=== PATIENT | female | born 1960 | race Caucasian/White ===

== ENCOUNTER 2018-07-15 14:07 | Inpatient (IN) ==
--- NOTE | 2018-07-15 14:49 | PROVIDER DOCUMENTATION ---
HPI-Rash/Wound/ReCheck - General Chief Complaint: Extremity Pain Stated Complaint: L-LEG RED/PURPLE X 3 DAYS Time Seen by Provider: 07/15/18 14:09 Allergies/Adverse Reactions: Allergies Allergy/AdvReac Type Severity Reaction Status Date / Time paroxetine HCl * [From Paxil] Allergy Unknown Verified 05/12/15 11:15 Home Medications: Home Medication List Medication Instructions Recorded Confirmed Last Taken Type Hydrocodone/Acetaminophen [Mentor 1 each PO Q4H PRN PRN 09/14/13 05/12/15 05/12/15 History 10-325 Tablet] Ropinirole [Requip] 1 mg PO BID 09/14/13 05/12/15 05/12/15 History Tizanidine HCl [Zanaflex] 2 mg PO QHS 09/14/13 05/12/15 05/12/15 History Amoxicillin [Amoxil] 875 mg PO BID #20 tablet 05/12/15 Unknown Rx Cyclobenzaprine [Flexeril] 10 mg PO TID #20 tablet 05/12/15 Unknown Rx Ondansetron Odt [Zofran 4 mg Odt] 4 mg PO Q6H PRN PRN #14 tablet 05/12/15 Unknown Rx - History of Present Illness-Dermatology Nature of Presenting Problem: reports that her chronic left foot ulcer has been worsening, severe sharp painful to touch or bear weight. this recurrent started on monday. associated with draining and fevr chills, sob. denied cp. history of several dvt left worsen than right and multiple vascular surgeries and plastic surgery, wound care done at [facility]. also has history of PE b/l lung and on chronic anticoagulant eliquis. Review of Systems - Adult - REVIEW OF SYSTEMS - ADULT Constitutional: reports: no symptoms reported Eyes: reports: no symptoms reported Ears, Nose, Mouth & Throat: reports: no symptoms reported Cardiovascular: reports: no symptoms reported Respiratory: reports: no symptoms reported Gastrointestinal: reports: no symptoms reported Genitourinary: reports: no symptoms reported Musculoskeletal: reports: no symptoms reported Integumentary: reports: no symptoms reported Neurological: reports: no symptoms reported Psychiatric: reports: no symptoms reported Endocrine: reports: no symptoms reported Hematologic/Lymphatic: reports: no symptoms reported Allergic/Immunologic: reports: no symptoms reported All Other Systems: Reviewed and Negative Past History - Adult - PAST MEDICAL HISTORY-ADULT Review of Records: reports: Old Records Reviewed, Nursing Assessment Review, Medications Reviewed, Social history reviewed & non-contributory. Major Childhood Illnesses: reports: denies history Cardiovascular: reports: denies history, blood clots Respiratory: reports: denies history Gastrointestinal: reports: denies history Obstetrical/Gynecological: reports: denies history Genitourinary: reports: denies history Musculoskeletal: reports: denies history Neurological: reports: denies history, other (restless legs) Psychiatric: reports: anxiety Endocrine/Immune: reports: denies history Other Conditions: reports: denies history - PRIOR SURGERIES/PROCEDURES Surgical/Procedure History: reports: orthopedic (extremity) - IMMUNIZATION STATUS Childhood Immunizations: See Nurse Assessment Flu Vaccine: See Nurse Assessment - FAMILY HISTORY Family History: reviewed, not pertinent - SOCIAL HISTORY Smoking: denies Provider spent 3-5 mins advising pt. on dangers of tobacco.: Discussed manners to quit use, and f/u contacts for add'l counseling. Substance Use: none/never Physical Exam-General - PHYSICAL EXAM-ADULT Initial Vital Signs Reviewed: Yes - CONSTITUTIONAL General Appearance: appears well, alert, mild distress - EYES Eyes: PERRL/EOMI, pink conjunctivae - HEAD, EARS, NOSE, MOUTH & THROAT HENMT: normocephalic/atraumatic, moist mucous membranes, normal ENT inspection - NECK Neck: non-tender, full range of motion - RESPIRATORY Respiratory: chest non-tender, lungs clear, normal breath sounds, no pleuratic chest pain, no respiratory distress - CARDIOVASCULAR Cardiovascular: normal peripheral pulses, tachycardia - GASTROINTESTINAL (ABDOMEN) Abdominal Exam: normal bowel sounds, non tender, soft - MUSCULOSKELETAL Back Exam: normal inspection, no CVA tenderness, no vertebral tenderness Extremity: normal range of motion, erythema, inflammation, swelling, tenderness (left foot, NVI, left medial ankle with large opened ulcer, mild drainage.) - NEUROLOGIC Neurologic: grossly normal, no motor/sensory deficits - PSYCHIATRIC Psych/Mental Status: normal thought content, normal thought process, oriented x 3 Progress - PLAN OF CARE/RESULTS Progress/Plan/Lab Results: Laboratory Results - last 24 hr 07/15/18 07/15/18 07/15/18 15:12 15:12 15:12 WBC 9.24 RBC 4.98 Hgb 11.7 L Hct 37.8 MCV 75.9 L MCH 23.5 L MCHC 31.0 L RDW Std Deviation 24.5 H Plt Count 267 MPV 9.1 Immature Gran % (Auto) 0.2 Neut % (Auto) 80.1 H Lymph % (Auto) 10.2 L Mckean % (Auto) 9.0 Eos % (Auto) 0.4 Baso % (Auto) 0.1 Immature Gran # (Auto) 0.02 Neut # (Auto) 7.40 H Lymph # (Auto) 0.94 L Mckean # (Auto) 0.83 H Eos # (Auto) 0.04 Baso # (Auto) 0.01 ESR 45 H PT 16.5 H INR 1.23 PTT (Actin FS) 43.6 H Sodium 139 Potassium 4.9 Chloride 106 Carbon Dioxide 18 L Anion Gap Not Reportable BUN 15 Creatinine 1.0 H Estimated GFR/1.73 m2 57 BUN/Creatinine Ratio 15 Glucose 106 H Calculated Osmolality Not Reportable Calcium 9.4 Total Bilirubin 0.35 AST 47 H ALT 29 Alkaline Phosphatase 89 Troponin T C-Reactive Prot, Quant 191.67 H Total Protein 7.8 Albumin 4.1 Globulin 3.7 Albumin/Globulin Ratio 1.1 Plasma Lactate TSH 07/15/18 07/15/18 07/15/18 15:12 15:12 15:12 WBC RBC Hgb Hct MCV MCH MCHC RDW Std Deviation Plt Count MPV Immature Gran % (Auto) Neut % (Auto) Lymph % (Auto) Mckean % (Auto) Eos % (Auto) Baso % (Auto) Immature Gran # (Auto) Neut # (Auto) Lymph # (Auto) Mckean # (Auto) Eos # (Auto) Baso # (Auto) ESR PT INR PTT (Actin FS) Sodium Potassium Chloride Carbon Dioxide Anion Gap BUN Creatinine Estimated GFR/1.73 m2 BUN/Creatinine Ratio Glucose Calculated Osmolality Calcium Total Bilirubin AST ALT Alkaline Phosphatase Troponin T < 0.010 C-Reactive Prot, Quant Total Protein Albumin Globulin Albumin/Globulin Ratio Plasma Lactate 3.2 H TSH 1.50 Orders Category Date Time Status Admit - [facility] Routine AdmDCTranf 07/15/18 18:16 Active Activity - Up with Assistance ORDERED Care 07/15/18 18:16 Active Cardiac Monitoring DIRECTED Care 07/15/18 14:47 Active Intake and Output-Strict ORDERED Care 07/15/18 18:16 Active Nursing- MD Consult Request ROUTINE Care 07/15/18 18:21 Active Nursing- MD Consult Request ROUTINE Care 07/16/18 07:00 Active Nursing- Obtain EKG ONCE Care 07/15/18 14:47 Active Oxygen Therapy- ED Nursing DIRECTED Care 07/15/18 14:47 Active Saline Loc NOW Care 07/15/18 14:47 Active Vital Signs Order Q 4-HR ASSESS Care 07/15/18 18:17 Active Z-Document. for Tele Applied ORDERED Care 07/15/18 18:17 Completed MD [Physician/Provider Consults] Routine Cons 07/15/18 18:20 Ordered MD [Physician/Provider Consults] Routine Cons 07/16/18 07:00 Ordered Heart Healthy Diet Diet 07/15/18 18:17 Active CHEST-2 VIEWS [RAD] Stat Exams 07/15/18 14:47 Completed LOWER LEG-LEFT [RAD] Stat Exams 07/15/18 14:45 Completed BLOOD CULTURE [BLDCUL] Stat Lab 07/15/18 15:00 Results C REACTIVE PROT QUANT [CHEM] Stat Lab 07/15/18 15:12 Completed CBC WITH DIFF [HEME] Routine Lab 07/16/18 07:35 Completed CBC WITH ELECTRONIC DIFF [HEME] Stat Lab 07/15/18 15:12 Completed COMPREHENSIVE METABOLIC PANEL [CHEM] Routine Lab 07/16/18 07:35 Completed COMPREHENSIVE METABOLIC PANEL [CHEM] Stat Lab 07/15/18 15:12 Completed LACTATE, PLASMA [CHEM] Stat Lab 07/15/18 15:12 Completed PROTIME WITH INR [COAG] Stat Lab 07/15/18 15:12 Completed PTT [COAG] Stat Lab 07/15/18 15:12 Completed SED RATE [HEME] Stat Lab 07/15/18 15:12 Completed TROPONIN T Stat Lab 07/15/18 15:12 Completed TSH Stat Lab 07/15/18 15:12 Completed VITAMIN D 25 HYDROXY Routine Lab 07/16/18 07:35 Completed WOUND CULTURE INC GRAM STAIN [RM] Routine Lab 07/15/18 22:50 Results 0.9% Sodium Chloride Inj [Ns] 1,000 ml Med 07/15/18 18:30 Active IV 75 mls/hr 0.9% Sodium Chloride Inj [Ns] 1,000 ml Med 07/15/18 16:32 Discontinued IV 999 mls/hr Acetaminophen [Tylenol] Med 07/15/18 18:16 Active 650 mg PO Q6H PRN PRN Apixaban [Eliquis] Med 07/15/18 21:00 Active 5 mg PO BID CefEPIME [Maxipime] 1 gm Med 07/15/18 18:30 Discontinued 0.9% Sodium Chloride Inj [Ns] 50 ml IV Q12H CefTRIAXONE [Rocephin] 1 gm Med 07/15/18 17:28 Discontinued 0.9% Sodium Chloride Inj [Ns] 50 ml IV NOW Hydromorphone [Dilaudid] Med 07/15/18 18:19 Active 1 mg IV Q3H PRN PRN Morphine Med 07/15/18 16:39 Discontinued 4 mg IV NOW ONE Ondansetron [Zofran] Med 07/15/18 18:16 Active 4 mg IV Q4H PRN PRN Pharmacy Order [Vancomycin IV Per Pharmacy] Med 07/15/18 18:30 Active 1 each MISC DIRECTED Tramadol [Ultram] Med 07/15/18 18:20 Active 50 mg PO Q6H PRN PRN CP/SOB/Palp >45 yrs of Age Stat Oth 07/15/18 14:47 Ordered Oxygen Device Routine Oth 07/15/18 18:16 Completed Pulse Oximetry Routine Oth 07/15/18 18:16 Completed Telemetry [OM.EQ] Routine Oth 07/15/18 18:16 Active EKG [EKG] Stat Ther 07/15/18 14:47 Draft Venous U/S Left Leg Stat Ther 07/15/18 14:45 Completed Transfer/Admit Order [TRANSFER] Routine Transfer 07/15/18 18:23 Completed Result Diagrams: 07/16/18 07:35 07/16/18 07:35 - EKG 1 Time of EKG reading by physician:: 14:55 EKG Read and Signed by:: Elke Bernstein EKG Interpretation (*Must complete 3 of following elements*): Abnormal Rate: 95 Rhythm: sinus rhymthm with occ pvc Vantage: left QRS: normal TX Interval: normal ST Wave: normal Prior EKG Comparison: changes noted Departure - Departure Date of Disposition Decision: 07/15/18 Time of Disposition Decision: 20:01 DIAGNOSIS: DVT (deep venous thrombosis), Stasis ulcer of left lower extremity Disposition: ADMITTED INPATIENT 09 Certified Medical Emergency: Emergent Condition: Stable - Critical Care Note This patient required my direct & personal management of CC.: No Attestation - Physician/ CLUADIA Attestation The physician spent face to face time with patient:: Yes Advanced Practice Provider documentation review:: Supervising physician onsite and consulted in the evaluation and care of this patient. The physician did have a face to face encounter with the patient.
[2018-07-15 15:25] LABS: BASO# 0.01 X1000 (0.0-0.2); BASO% 0.1 % (0.0-0.8); EOS# 0.04 X1000 (0.0-0.7); EOS% 0.4 % (0.0-10.0); HEMATOCRIT 37.8 % (37.0-47.0); HEMOGLOBIN 11.7 g/dL (12.0-16.0); IMM GRAN# 0.02 X1000 (0.0-0.04); IMM GRAN% 0.2 % (0.0-0.5); LYMPH# 0.94 X1000 (1.2-3.4); LYMPH% 10.2 % (20.5-51.1); MCH 23.5 PG (27-31); MCV 75.9 FL (81-99); MONO# 0.83 X1000 (0.11-0.59); MPV 9.1 FL (7.4-10.4); NEUT% 80.1 % (42.2-75.2); PLT 267 X1000 (130-400); RBC 4.98 XMIL (4.2-5.4); RDW 24.5 % (11.5-14.5); WBC 9.24 X1000 (4.8-10.8)
[2018-07-15 15:32] LABS: INR 1.23; PROTIME 16.5 Seconds (11.0-16.0)
[2018-07-15 15:33] LABS: PTT 43.6 Seconds (22.3-41.8)
[2018-07-15 15:59] LABS: SODIUM 139 mmol/L (136-145)
[2018-07-15 16:04] LABS: ALB/GLOB RATIO 1.1; ALBUMIN 4.1 g/dL (3.5-5.0); ALKALINE PHOSPHATASE 89 U/L (32-104); BUN 15 mg/dL (8-22); C REACTIVE PROT QUANT 191.67 mg/L (0.00-5.00); CALCIUM 9.4 mg/dL (8.8-10.2); CHLORIDE 106 mmol/L (98-107); ESTIMATED GFR 57; GLUCOSE 106 mg/dL (70-104); GOT 47 U/L (10-30); GPT 29 U/L (10-36); POTASSIUM 4.9 mmol/L (3.5-5.1); TCO2 18 mmol/L (25-35); TOTAL BILIRUBIN 0.35 mg/dL (0.20-1.00); TOTAL PROTEIN 7.8 g/dL (6.3-8.3)
[2018-07-15 16:27] LABS: SED RATE 45 mm/hr (0-20)
[2018-07-15] MEDS ORDERED: NS 1,000 ML IV ONE (16:32)
[2018-07-15] MEDS ORDERED: MORPHINE IV ONE (16:39)
--- NOTE | 2018-07-15 16:48 | Diag Imaging Result Doc PS360 ---
LOWER LEG-LEFT - 07/15/2018 INDICATION: osteomyelitis TECHNIQUE: Three views COMPARISON: None FINDINGS: There is a screw in the anterior proximal tibia. There are surgical clips throughout the soft tissues of the lower leg. There is also diffuse subcutaneous edema. No fractures or bony erosions. No soft tissue gas. IMPRESSION: Nonspecific findings. Electronically signed by Johnny Santiago 07/15/2018 4:45 PM
--- NOTE | 2018-07-15 16:49 | Diag Imaging Result Doc PS360 ---
CHEST-2 VIEWS - 07/15/2018 INDICATION: sob COMPARISON: 05/12/2016 FINDINGS: Stable relatively large hiatal hernia. The lungs are clear. Heart size is normal. No pneumothorax or pleural effusion. IMPRESSION: Hiatal hernia. No acute disease. Electronically signed by Johnny Santiago 07/15/2018 4:46 PM
[2018-07-15] MEDS ORDERED: ROCEPHIN 1 GM in NS 50 ML IV ONE (17:28)
[2018-07-15] MEDS ORDERED: ZOFRAN IV PRN (18:16)
[2018-07-15] MEDS ORDERED: VANCOMYCIN IV PER PHARMACY MISC SCH (18:30)
[2018-07-15] MEDS: NS 1,000 ML IV SCH (20:38)
[2018-07-15] MEDS: DILAUDID IV PRN ×2 (20:41→23:22)
[2018-07-15] MEDS: MAXIPIME 1 GM in NS 50 ML IV SCH (20:55)
--- NOTE | 2018-07-15 20:57 | HISTORY AND PHYSICAL ---
PRIMARY CARE PHYSICIAN: Dr. Johnny Plascencia. CHIEF COMPLAINT: Increased swelling, pain and drainage from the left leg. HISTORY OF PRESENT ILLNESS: Ms. Bahena is a 58-year-old female with a history of morbid obesity, recurrent bilateral DVT with pulmonary embolism, chronic left leg venous stasis ulceration who presented to the ER today with a chief complaint of increasing left leg pain, swelling and erythema. The patient reports that a month ago at [facility] she was diagnosed with bilateral lower extremity DVT as well as bilateral pulmonary embolism. The patient reports that she was placed on Eliquis and was hospitalized for one week. Ever since discharge the patient reports that she has been having pain and increased swelling in the left leg. She also reports increased shortness of breath and weakness. The patient reports that she does take her Eliquis as prescribed and has not missed any doses. The patient reports that she also has a chronic venous stasis ulceration on the medial aspect of her left ankle. She reports that she has had problems with this ulceration for over 25 years. In the ER, the patient was noted to be in severe pain from the swelling in her left leg and a left lower extremity venous Doppler was done that revealed a DVT involving the left leg. PAST MEDICAL HISTORY: 1. History of recurrent bilateral DVT. 2. Recurrent pulmonary emboli. 3. Morbid obesity. 4. Depression. 5. Restless legs syndrome. 6. Chronic bronchitis. PAST SURGICAL HISTORY: 1. Left knee arthroscopy. 2. Multiple debridements of the chronic venous stasis ulceration on the medial aspect of the left ankle. 3. Hysterectomy. SOCIAL HISTORY: The patient is a . She denies any tobacco, alcohol or illicit drug use. ALLERGIES: Paxil. HOME MEDICATIONS: The patient's complete medication reconciliation is not available. FAMILY HISTORY: The patient's brother had diabetes. The patient's mother had lung cancer. The patient's maternal grandmother had breast cancer. REVIEW OF SYSTEMS: A 12-point review of systems has been performed. Please refer to the History of Present Illness for pertinent positives and negatives. PHYSICAL EXAMINATION: VITALS: Temperature 99.5, blood pressure 145/86, heart rate 113, respirations 20, O2 sats 96% on room air. GENERAL: This is a morbidly obese female lying comfortably in bed in no acute distress. HEENT: Head: Normocephalic, atraumatic. Eyes: Conjunctiva clear, EOMI, PERRLA. NECK: Supple. No JVD. No lymphadenopathy. HEART: S1, S2 normal. Tachycardic. LUNGS: Clear to auscultation bilaterally. No wheezing. No rales. No rhonchi. ABDOMEN: Positive bowel sounds. Soft, obese, nontender, nondistended. EXTREMITIES: The patient has extensive swelling involving the left leg. It is warm to touch. There is petechiae on the lower aspect of the leg. There is also a draining chronic venous stasis ulceration on the medial aspect of the left ankle. NEUROLOGIC: The patient is alert and oriented x 4. No focal neurologic deficits noted. Cranial nerves 2-12 intact. LABS: White blood cell count 9.2, hemoglobin 11, hematocrit 37, platelets 267,000. INR 1.2. Sodium 139, potassium 4.9, chloride 106, CO2 18, BUN 15, creatinine 1, glucose 106, AST 47, ALT 29, alkaline phosphatase 89. Troponin less than 0.01. CRP 191.6. TSH 1.5, plasma lactate 3.2. Lower extremity x-ray shows diffuse subcutaneous edema. No soft tissue gas. Chest x-ray shows a hiatal hernia. No acute disease. ASSESSMENT AND PLAN: 1. Infected left ankle chronic venous stasis ulceration. We will start the patient on empiric antibiotic therapy. A wound culture and Gram stain have been ordered. We will also consult with ID and General Surgery. We will also consult Wound Care. 2. Bilateral lower extremity DVT with pulmonary embolism. We will continue on Eliquis. 3. Morbid obesity. Aware. 4. GI prophylaxis. Will start the patient on omeprazole. cc: Laura Delacruz MD [facility]
[2018-07-15] MEDS ORDERED: VANCOMYCIN 2.1 GM in NS 500 ML IV ONE (21:00)
[2018-07-15] MEDS: ULTRAM PO PRN (22:43)
[2018-07-15] MEDS: ELIQUIS PO SCH (22:43)
[2018-07-16] MEDS: DILAUDID IV PRN ×4 (02:41→16:24)
[2018-07-16] MEDS: ULTRAM PO PRN ×2 (05:46→11:36)
[2018-07-16] MEDS: MAXIPIME 1 GM in NS 50 ML IV SCH (05:47)
[2018-07-16] MEDS: PRILOSEC PO SCH (06:29)
[2018-07-16 08:05] LABS: BASO# 0.01 X1000 (0.0-0.2); BASO% 0.1 % (0.0-0.8); EOS# 0.18 X1000 (0.0-0.7); EOS% 2.6 % (0.0-10.0); HEMATOCRIT 32.5 % (37.0-47.0); HEMOGLOBIN 9.9 g/dL (12.0-16.0); LYMPH# 1.78 X1000 (1.2-3.4); LYMPH% 25.3 % (20.5-51.1); MCH 23.4 PG (27-31); MCHC 30.5 g/dL (33-37); MCV 76.8 FL (81-99); MONO# 1.15 X1000 (0.11-0.59); MONO% 16.4 % (1.7-9.3); MPV 9.1 FL (7.4-10.4); NEUT# 3.91 X1000 (1.4-6.5); NEUT% 55.6 % (42.2-75.2); PLT 227 X1000 (130-400); RBC 4.23 XMIL (4.2-5.4); RDW 24.3 % (11.5-14.5); WBC 7.03 X1000 (4.8-10.8)
--- NOTE | 2018-07-16 08:22 | INFECTIOUS DISEASE CONSULT REP ---
DATE: 07/16/2018 CONCLUSION: The patient has an infected left leg venous stasis ulcer. She also has leg cellulitis. I am concerned that there may be an underlying osteomyelitis where the patient has her left leg venous stasis ulcer. The patient does have a history of many infections including pneumonia, chronic bronchitis, and urinary tract infection. She appears to have a prolonged infection with her left ankle. For all these reasons, I am concerned that she may have an immunoglobulin deficiency. RECOMMENDATIONS: I agree with the current antibiotics, namely vancomycin and cefepime, pending the results of the culture. I have increased the dose of cefepime to 2 g IV every 12 hours. I have also ordered an MRI of the left ankle to look for the possibility of osteomyelitis. I am going to order immunoglobulin levels. DISCUSSION: The patient tells me that for 25 years, she has had a left medial ankle venous stasis ulcer. In the past month, the patient has had erythema and swelling of the left leg just proximal from the venous stasis ulcer. She has recently been diagnosed with having bilateral deep venous thrombi in both legs, associated with pulmonary emboli. Laboratory studies thus far show a CBC with a white count of 9240, hemoglobin 11.7, platelet count 267,000. Creatinine is 1.0. GFR is 57. Liver function studies are normal except for an AST of 47. Gram stain from the patient's venous stasis ulcer shows no bacteria. A culture of the ulcer is pending. Chest x-ray shows no acute disease. X-ray of the left ankle shows no osteomyelitis. PATIENT RELATIONS LIAISON HISTORY: The patient is a 3, para 2, AB 2. She has had a hysterectomy. One of the miscarriages, the patient had twins and both . REVIEW OF SYSTEMS: Eyes and Ears: Her hearing and vision are good. Neck: No pain with movement of the neck. Respiratory: When the patient had her pulmonary emboli, it did cause her to be somewhat dyspneic but that is improving. Cardiac: No chest pain or palpitations. GI: The patient tells me she has had constipation for 10 years and it is because she takes narcotics for her pain in her left leg. : No dysuria or flank pain. Neurologic: No seizures. She has decreased strength in her legs due to the diseases she has such as deep venous thrombi and an infection in the left leg. Endocrine: She does not have diabetes or thyroid problems. PREVIOUS HOSPITALIZATIONS AND OPERATIONS: She has had numerous operations on her left leg. Some of the operations involved removing veins and ligating veins. She has also had skin grafts to her leg. In her left knee, she has screws. MEDICAL DISEASES: Positive for hypertension, obesity, deep venous thrombosis, pulmonary emboli, and osteoarthritis. INFECTIOUS DISEASE HISTORY: Positive for pneumonia, chronic bronchitis, and UTI. FAMILY HISTORY: Positive for diabetes mellitus, hypertension, myocardial infarction, and cancer. SOCIAL HISTORY[place] . She lives with her daughter. She does not have any pets at home. She does not smoke cigarettes, drink alcoholic beverages, or abuse drugs. The patient is disabled. ALLERGIES: The patient is allergic to Paxil. HOME MEDICATIONS: The home medications include the following: Amoxicillin, Flexeril, hydrocodone, Zofran, Requip, and Zanaflex. PHYSICAL EXAMINATION: Vital Signs: Temperature is 97.8 degrees, pulse 65, respirations 18, blood pressure 106/47. The patient weighs 230 pounds. General: This is an obese, middle-aged female. She is in no acute distress at this time. Head, Eyes, Ears, Nose, and Throat: She can hear my spoken words and see near objects. She does not have any white coating on her tongue. Neck: There is no pain when she moves her neck. Lungs: Clear to auscultation. Cardiovascular: Regular heart rate. Abdomen: Soft and nontender. Extremities: The patient's left leg is erythematous and swollen. On the medial aspect of the left ankle, there is a large wound that has purulent drainage. There are also some small eschars that are brown in color. Part of the patient's left leg from above the ankle to the knee is erythematous. Neurologic: The patient is awake. She can move her extremities. There was no tremor. Her sensation is intact to touch. Her memory as regarding her medical history is intact. Integument: No rash noted. Thank you for the consult. cc: Albert Zavala MD
[2018-07-16 08:35] LABS: AGAP 9; ALBUMIN 3.4 g/dL (3.5-5.0); ALKALINE PHOSPHATASE 70 U/L (32-104); BUN 13 mg/dL (8-22); CALCIUM 8.6 mg/dL (8.8-10.2); CHLORIDE 103 mmol/L (98-107); COSMO 276; CREATININE 0.6 mg/dL (0.5-0.9); ESTIMATED GFR > 60; GLUCOSE 110 mg/dL (70-104); GOT 28 U/L (10-30); GPT 22 U/L (10-36); POTASSIUM 3.6 mmol/L (3.5-5.1); SODIUM 138 mmol/L (136-145); TCO2 26 mmol/L (25-35); TOTAL BILIRUBIN 0.46 mg/dL (0.20-1.00); TOTAL PROTEIN 6.9 g/dL (6.3-8.3)
--- NOTE | 2018-07-16 08:51 | EKG Report ---
Test Performed on : 07/15/2018 2:53:05 PM Test Reason : CP Blood Pressure : / mmHG Vent. Rate : 095 BPM Atrial Rate : 095 BPM P-R Int : 156 ms QRS Dur : 092 ms QT Int : 332 ms P-R-T Axes : 004 -36 036 degrees QTc Int : 417 ms Sinus rhythm. with occasional premature ventricular complexes. Left axis deviation Abnormal ECG When compared with ECG of 12-MAY-2016 16:40, premature ventricular complexes. are now present Unconfirmed Result
[2018-07-16] MEDS: ELIQUIS PO SCH ×2 (09:18→20:11)
[2018-07-16 09:56] LABS: ANISOCYTOSIS 2+; BANDS 4 % (0-1); HYPOCHROM 1+; LYMPHS 20 % (21-51); MONO 10 % (1-9); SEGS 66 % (42-75)
[2018-07-16] MEDS: NEURONTIN PO SCH ×3 (12:22→20:11)
[2018-07-16] MEDS: MS CONTIN PO SCH ×2 (12:23→22:00)
[2018-07-16] MEDS: NS 1,000 ML IV SCH (12:27)
--- NOTE | 2018-07-16 16:05 | Diag Imaging Result Doc PS360 ---
EXAM: MRI LOW EXT JT W/WO CON-LEFT 07/16/2018 HISTORY: L ankle osteomyelitis TECHNIQUE: MRI of the left ankle, sagittal T1, STIR, coronal proton density fat sat, T1 fat sat, axial T1 fat sat, coronal T1 fat sat post gadolinium and axial T1 fat sat post gadolinium. COMMENT: There is no evidence of bone marrow edema. There is considerable superficial soft tissue edema. The ankle mortise appears to be intact. There are numerous varicosities in the subcutaneous fat. There are no discrete fluid collections to suggest an abscess. IMPRESSION: No evidence of osteomyelitis. The possibility of cellulitis cannot be excluded. Electronically signed by Niles Stafford 07/16/2018 4:03 PM
--- NOTE | 2018-07-16 16:16 | PROGRESS NOTE ---
DATE: 07/16/2018 SUBJECTIVE: The patient complains of pain in her left leg. She also has a draining venous stasis ulceration on the medial aspect of the left ankle. There is erythema as well tracking up the leg from the ulceration. OBJECTIVE: Vital Signs: Temperature 97.9 degrees, blood pressure 123/62, heart rate 62, respirations 20, O2 saturation is 98% on room air. General: This is a chronically ill-appearing elderly female, lying in bed in no acute distress. Head: Normocephalic, atraumatic. Heart: S1, S2 normal, regular rate and rhythm. Lungs: Clear to auscultation bilaterally. Abdomen: Positive bowel sounds. Soft, obese, nontender, nondistended. Extremities: 2+ edema in the left leg with erythema tracking up from the ankle up to the knee. There is also an infected chronic venous stasis ulceration on the left medial ankle. Neurologic: The patient is alert and oriented x4. DIAGNOSTIC STUDIES: White blood cell count 7, hemoglobin 9.9, hematocrit 32, platelets 227,000. Sodium 138, potassium 3.6, chloride 103, CO2 of 26, BUN 13, creatinine 0.6, glucose 110, albumin 3.4. ASSESSMENT AND PLAN: 1. Infected left ankle chronic venous stasis ulceration. Continue with antibiotic therapy as directed by Dr. Zavala. Wound Care is also following. 2. Chronic pain. We will restart the patient's long-acting morphine and continue with Dilaudid as needed for breakthrough pain. 3. Neuropathy. We will restart the patient's gabapentin. 4. Morbid obesity. Aware. 5. Recurrent bilateral lower extremity deep vein thromboses with pulmonary embolism. Continue on Eliquis. 6. Gastrointestinal prophylaxis. Continue on Prilosec. cc: Laura Delacruz MD [facility]
[2018-07-16] MEDS: MAXIPIME 2 GM in NS 100 ML IV SCH (16:24)
--- NOTE | 2018-07-16 19:29 | Extremity Venous Study ---
PROCEDURE NAME: Venous U/S Left Leg - 07/15/2018 EXAM FOR COMPARISON: 08/08/2016 INDICATION: History of deep venous thrombosis with edema, redness, and ulcer in the left lower extremity. FINDINGS: Deep superficial veins of left lower extremity were visualized. There is nonocclusive DVT noted in the left common femoral, mid and distal femoral veins and popliteal veins. This is similar to her previous imaging obtained in 2017 of her left lower extremity. SUMMARY: Persistent deep venous thrombosis changes of the left lower extremity with maintained flow. cc: Andreea Underwood MD
--- NOTE | 2018-07-16 19:41 | GENERAL SURGERY CONSULTATION ---
DATE: 07/16/2018 HISTORY OF PRESENT ILLNESS: A 58-year-old female, known to me from previous treatment of venous ulcers of her left leg. It has been greater than a year and a half ago. Apparently, was recently admitted and was found to have DVTs in bilateral lower extremities and PE's and was treated with Eliquis for this. Over the last several days, she has developed worsening pain, erythema and edema. She says her compression stockings, which she had previously been compliant with, tore and there was some story that goes along with this. However, the ulcer developed shortly after as well as her severe edema. She presents now with cellulitis of the leg and a left medial ankle ulcer. She has had MRIs and other studies have shown no osteomyelitis. MEDICAL HISTORY: 1. Obesity. 2. Venous insufficiency. 3. Questionable PTE with DVT apparently in the recent future. 4. Hypertension. SURGICAL HISTORY: No vascular procedures. SOCIAL HISTORY: . No tobacco, alcohol or drugs currently. FAMILY HISTORY: Reviewed. REVIEW OF SYSTEMS: Ten point negative. PHYSICAL EXAMINATION: Vital Signs: Temperature is 97.9, pulse 70, blood pressure 142/89, oxygen saturation 100%. General: She is alert. HEENT: No scleral icterus. Cardiovascular: Normal rate. Pulmonary: No increased work of breathing. Abdomen: Soft, obese. Integument: Warm and dry. Psychiatric: Appropriate affect. Peripheral vascular: She has bilateral lower extremity edema, significantly worse in the left lower extremity. Feet are warm with capillary refill. There is cellulitis surrounding her calf and a medial left ankle ulcer with a clean base. Musculoskeletal: Significant bilateral lower extremity edema. Decreased range of motion related to this tenderness to the left calf. Psychiatric: Somewhat anxious. Neurologic: No gross deficits. LABS: White count 7, hematocrit 32, platelets 227. Creatinine 0.6, glucose 110. LFTs normal. Albumin is 3.4. I reviewed her MRI and her plain film x-ray, chest x-ray. ASSESSMENT AND PLAN: A 58-year-old female with cellulitis related to venous insufficiency, venous ulcer in the left leg calf. Would recommend engaging Evelyn Louise, our wound nurse with Unna boot change in her left lower extremity and antibiotics per Infectious Disease. We will follow along. No surgical debridement at this point. I suspect that this will improve with compression. cc: Andreea Underwood MD
[2018-07-16] MEDS: VANCOMYCIN 1.8 GM in NS 250 ML IV SCH (21:47)
[2018-07-17] MEDS: MAXIPIME 2 GM in NS 100 ML IV SCH ×3 (00:30→15:42)
[2018-07-17] MEDS: NS 1,000 ML IV SCH ×2 (03:33→21:41)
[2018-07-17] MEDS: PRILOSEC PO SCH (06:13)
[2018-07-17 07:24] LABS: BASO# 0.02 X1000 (0.0-0.2); BASO% 0.3 % (0.0-0.8); EOS# 0.22 X1000 (0.0-0.7); EOS% 3.6 % (0.0-10.0); HEMATOCRIT 34.2 % (37.0-47.0); HEMOGLOBIN 10.3 g/dL (12.0-16.0); IMM GRAN# 0.02 X1000 (0.0-0.04); IMM GRAN% 0.3 % (0.0-0.5); LYMPH# 1.62 X1000 (1.2-3.4); LYMPH% 26.2 % (20.5-51.1); MCH 23.3 PG (27-31); MCHC 30.1 g/dL (33-37); MCV 77.4 FL (81-99); MONO# 0.66 X1000 (0.11-0.59); MONO% 10.7 % (1.7-9.3); MPV 9.1 FL (7.4-10.4); NEUT# 3.65 X1000 (1.4-6.5); NEUT% 58.9 % (42.2-75.2); PLT 247 X1000 (130-400); RBC 4.42 XMIL (4.2-5.4); RDW 24.2 % (11.5-14.5); WBC 6.19 X1000 (4.8-10.8)
[2018-07-17 08:10] LABS: AGAP 4; BUN 9 mg/dL (8-22); CALCIUM 8.9 mg/dL (8.8-10.2); CHLORIDE 103 mmol/L (98-107); COSMO 277; CREATININE 0.6 mg/dL (0.5-0.9); ESTIMATED GFR > 60; GLUCOSE 138 mg/dL (70-104); POTASSIUM 3.5 mmol/L (3.5-5.1); SODIUM 138 mmol/L (136-145); TCO2 31 mmol/L (25-35)
[2018-07-17] MEDS: MS CONTIN PO SCH (09:30)
[2018-07-17] MEDS: NEURONTIN PO SCH ×4 (09:30→21:35)
[2018-07-17] MEDS: ELIQUIS PO SCH ×2 (09:30→21:35)
[2018-07-17] MEDS: CARDIZEM CD PO SCH (09:30)
--- NOTE | 2018-07-17 09:36 | GENERAL SURGERY PROGRESS NOTE ---
DATE: 07/17/2018 SUBJECTIVE: Feels better this morning. No fevers. No tachycardia. I reviewed her labs. OBJECTIVE: On exam, erythema slightly improved in the left leg, persistent edema. LABS: White count is normal. ASSESSMENT AND PLAN: This is a 58-year-old female with venous hypertension in the left lower extremity with an ulcer and cellulitis. We will continue antibiotics for the cellulitis. Will start an Unna wrap therapy and will obtain a CT scan of the abdomen and pelvis to rule out proximal venous obstruction. We will continue to follow along. cc: Andreea Underwood MD
--- NOTE | 2018-07-17 09:56 | Diag Imaging Result Doc PS360 ---
EXAM: CT ABDOMEN/PELVIS W/WO CONTRAS 07/17/2018 HISTORY: Evaluate for proximal venous obstruction TECHNIQUE: This exam was performed using automated exposure control, adjustment of mA or kV according to patient size, and/or use of iterative reconstruction technique. COMMENT: There are no previous studies available for comparison. There is a large hiatal hernia. There is fibrosis or atelectasis in the medial lower lobes bilaterally. The spleen is enlarged measuring over 14 cm. There is a mass arising from the right adrenal gland with a CT density of less than 14 Hounsfield units on the noncontrast study and measuring 2.5 cm in diameter. There is no evidence of mass or hydronephrosis in the kidneys. The liver is unremarkable. There are no apparent gallstones. The aorta is not distended. The pancreas is within normal limits. There is no evidence of significant adenopathy. There is some stool in the right colon. The small bowel is not distended. Pelvis: There is no evidence of appendicitis. There is some diverticulosis in the sigmoid colon without evidence of acute diverticulitis. There is no evidence of free fluid. The urinary bladder is unremarkable. There are phleboliths in the pelvis. There is a 2 mm calculus in the lower pole of the left kidney. There is a 4 mm calcification which is adjacent to or within the distal left ureter. This is probably a phlebolith as there is no evidence of obstruction. There is a sclerotic lesion in the right ischium near the acetabulum which may be a bone island. There are spondylotic changes in the lumbar spine. There are no apparent venous filling defects. There is a prominent left inguinal node measuring over 27 mm. There are external iliac nodes one of which measures over 2.2 cm. IMPRESSION: Right adrenal nodule probably representing an adenoma. Splenomegaly. Left nephrolithiasis. Left external iliac and inguinal adenopathy. No evidence of deep venous thrombosis. Electronically signed by Niles Stafford 07/17/2018 9:54 AM
[2018-07-17] MEDS: DILAUDID IV PRN (12:42)
--- NOTE | 2018-07-17 16:24 | PROGRESS NOTE ---
DATE: 07/17/2018 SUBJECTIVE: Patient has no major complaints. OBJECTIVE: Vital Signs: Blood pressure is 126/60, heart rate is 73, respiratory rate 18, temperature 98.2 degrees, satting 100% on room air. Cardiovascular: Regular rate and rhythm. Pulmonary: Bilateral breath sounds. Clear to auscultation. GI: Soft, nontender, nondistended. Bowel sounds are positive. Extremity exam: No clubbing or cyanosis. Lymphatic exam: No peripheral edema. Neurological: Exam was nonfocal. LABORATORY DATA: CBC: H and H is 10 and 34. Normal white count. PROBLEM LIST: 1. Left ankle chronic venous stasis ulcer and cellulitis. She is on antibiotics per Dr. Zavala, which is cefepime and vancomycin and seems to be improved. 2. Chronic pain disorder. She is on her current pain medications. 3. History of deep vein thrombosis and pulmonary embolus. She is on Eliquis. DISPOSITION: Pending her clinical status. Anticipate discharge soon, hopefully in the next 1 to 2 days per recommendations from other providers. cc: Lee Gonzalez MD
[2018-07-17] MEDS: VANCOMYCIN 1.8 GM in NS 250 ML IV SCH (21:35)
[2018-07-18] MEDS: MAXIPIME 2 GM in NS 100 ML IV SCH ×2 (00:03→09:25)
[2018-07-18] MEDS: MS CONTIN PO SCH ×3 (00:06→21:17)
[2018-07-18] MEDS: NS 1,000 ML IV SCH ×2 (06:22→10:33)
[2018-07-18] MEDS: PRILOSEC PO SCH (06:23)
[2018-07-18 07:47] LABS: BASO# 0.03 X1000 (0.0-0.2); BASO% 0.4 % (0.0-0.8); EOS# 0.23 X1000 (0.0-0.7); EOS% 3.3 % (0.0-10.0); HEMOGLOBIN 9.7 g/dL (12.0-16.0); IMM GRAN# 0.02 X1000 (0.0-0.04); IMM GRAN% 0.3 % (0.0-0.5); LYMPH# 1.51 X1000 (1.2-3.4); LYMPH% 21.8 % (20.5-51.1); MCH 23.4 PG (27-31); MCHC 30.3 g/dL (33-37); MCV 77.3 FL (81-99); MONO% 11.6 % (1.7-9.3); MPV 9.2 FL (7.4-10.4); NEUT# 4.33 X1000 (1.4-6.5); NEUT% 62.6 % (42.2-75.2); PLT 248 X1000 (130-400); RBC 4.14 XMIL (4.2-5.4); RDW 23.8 % (11.5-14.5); WBC 6.92 X1000 (4.8-10.8)
[2018-07-18 08:09] LABS: AGAP 10; BUN 10 mg/dL (8-22); CALCIUM 8.8 mg/dL (8.8-10.2); CHLORIDE 107 mmol/L (98-107); COSMO 286; CREATININE 0.5 mg/dL (0.5-0.9); ESTIMATED GFR > 60; GLUCOSE 135 mg/dL (70-104); POTASSIUM 3.8 mmol/L (3.5-5.1); SODIUM 143 mmol/L (136-145); TCO2 26 mmol/L (25-35)
[2018-07-18] MEDS: CARDIZEM CD PO SCH (09:25)
[2018-07-18] MEDS: ELIQUIS PO SCH ×2 (09:25→21:17)
[2018-07-18] MEDS: NEURONTIN PO SCH ×4 (09:25→21:17)
[2018-07-18] MEDS: DILAUDID IV PRN (09:26)
--- NOTE | 2018-07-18 16:24 | PROGRESS NOTE ---
DATE: 07/18/2018 SUBJECTIVE: She is doing okay. She is still cannot bear much weight on her leg and IV Dilaudid does not control her pain, which is curious, I guess. She is also on a fairly significant amount of morphine 60 b.i.d. and reportedly on Percocet, although her outpatient med looks like it is [place]. In any case, she is getting Dilaudid now, but she says it is ineffective. We will work on her pain medications. OBJECTIVE: Vital signs: Blood pressure 136/70, heart rate of 71, respiratory rate of 16, temperature 98.5 degrees, 100% on room air. Cardiovascular: Regular rate and rhythm. Pulmonary: Bilateral breath sounds clear to auscultation. Gastrointestinal: Soft, nontender, nondistended. Bowel sounds were positive. DIAGNOSTIC STUDIES: White count 6, hemoglobin 9, hematocrit 32, platelets of 248,000. Basic was normal. PROBLEM LIST: 1. Left ankle chronic venous stasis ulcer, now with methicillin-sensitive Staphylococcus aureus. I interpreted that incorrectly. It is sensitive to oxacillin, so MSSA which would also suggest community-acquired. She has another GPC growing, but I do not have that report back yet. Presumably, it is not Staphylococcus, but we will see. Dr. Zavala is following. She is on vancomycin and cefepime. Typically for MSSA, we would do nafcillin or Kefzol. I will about switching her from cefepime to Kefzol and leave the vancomycin until we can get her final identifications, but again, final recommendations will be per Dr. Zavala. 2. Chronic pain disorder. She is on pain medications. I am going to switch her to something p.o. She is on [place] at home so we will try [place] now and see how things look. 3. History of deep vein thrombosis and pulmonary embolism she is currently on Eliquis. DISPOSITION: I think she can go home, but it will be pending ID and Surgical input to some degree. I think we will have to monitor, but I think she could go home soon. I will discuss with Dr. Zavala and Dr. Udnerwood. Will obviously need final culture results so hopefully I anticipate we should get those tomorrow. There are oral options, which would be Keflex presumably doxycycline and Bactrim. Clindamycin is not an option due to inducible resistance. cc: Lee Gonzalez MD [facility]
[2018-07-18] MEDS: KEFZOL 2 GM/D5W 2 GM/50 ML IVPB IV SCH (17:14)
--- NOTE | 2018-07-18 18:03 | GENERAL SURGERY PROGRESS NOTE ---
DATE: 07/18/2018 SUBJECTIVE: No fevers documented. Pain in her leg comes and goes. White count remains normal. Creatinine is normal. OBJECTIVE: She has an Unna boot in place on exam. There is no cellulitis extending up the leg. Stable edema in the right lower extremity. ASSESSMENT AND PLAN: This is a 58-year-old female with chronic venous insufficiency and hypertension, with venous ulcers of the left lower extremity. She has had clots in this side. I got a CT scan yesterday to rule out a proximal venous obstruction. There does appear to be some compression of left iliac vein by the right iliac artery, which could suggest May-Thurner syndrome. Will monitor her closely for this. She may benefit from intravenous ultrasound after we clear her cellulitis, but otherwise will continue antibiotics and local wound care. cc: Andreea Underwood MD
--- NOTE | 2018-07-18 19:11 | INFECTIOUS DISEASE PROGRESS NO ---
DATE: 07/18/2018 PRESENT ILLNESS: Ms. Bahena has oxacillin-sensitive Staphylococcus aureus infection to her left leg venous stasis ulcer, with cellulitis. MEDICATIONS: She has been on IV vancomycin, which we will discontinue, and will give her Kefzol 2 g IV every 8 hours while here in the hospital. PHYSICAL EXAMINATION: Vital Signs: Temperature is 98.4 degrees, pulse rate 72, respiratory rate 18, blood pressure 124/75, O2 saturation 99% on room air. General: This is a chronically ill appearing, mildly anxious, middle-aged female. She is sitting up in the bed. HEENT: Atraumatic, normocephalic. Oral mucous membranes are pink and moist. Conjunctivae are pink. Neck: Supple. Trachea is midline. Cardiovascular: Heart rate and rhythm are regular. Normal sinus rhythm on the monitor. Respiratory: Lung sounds are clear to auscultation in the upper lobes with some mild rales noted in the bases. Abdomen: Soft, round, and nontender. Bowel sounds are active. Neurologic: She is awake, alert, oriented, able to move all her extremities in the bed independently. Integumentary: There is an Unna wrap in place to her left lower extremity which is dry and intact. LABORATORY AND X-RAY: Today, her white count is 6.92, hemoglobin 9.7, platelet count 248,000. Creatinine is 0.5. Estimated GFR is greater than 60. Immunoglobulin levels show an IgA of 411 and an IgG of 943. So far, her left leg has grown an oxacillin sensitive Staphylococcus aureus, and there is another organism that is a gram-positive coccus which has yet to be identified. Blood cultures have shown no growth on this admission. No imaging reports today. ASSESSMENT AND PLAN: Ms. Bahena is being treated for an oxacillin-sensitive Staphylococcus aureus infection to her left lower extremity. There is no osteomyelitis noted on the lower extremity MRI done previously. At this point, she will just need to continue the Kefzol while she is in the hospital. Once she is ready to be discharged, we will provide 2 weeks of oral Keflex 500 mg by mouth every 8 hours. That prescription has been put on the on the chart. We will also follow up with her in 2 weeks in our office, and will continue to provide care along with Dr. Underwood, who is planning a possible surgery in the future according to the patient's report. These plans have been discussed with and recommended by Dr. Zavala. COMORBIDITIES: for Ms. Bahena include obesity, deep venous thrombosis, pulmonary embolus, osteoarthritis, and anxiety. Dictated by MARY Bailey for Albert Zavala MD cc: Albert Zavala MD [facility]
[2018-07-19] MEDS: KEFZOL 2 GM/D5W 2 GM/50 ML IVPB IV SCH ×3 (00:18→16:04)
[2018-07-19] MEDS: NORCO-10 PO PRN ×4 (01:24→17:22)
[2018-07-19] MEDS: TYLENOL PO PRN (03:58)
[2018-07-19] MEDS: PRILOSEC PO SCH (06:00)
[2018-07-19 07:46] LABS: BASO# 0.02 X1000 (0.0-0.2); BASO% 0.3 % (0.0-0.8); EOS% 5.1 % (0.0-10.0); HEMATOCRIT 31.3 % (37.0-47.0); HEMOGLOBIN 9.3 g/dL (12.0-16.0); IMM GRAN# 0.02 X1000 (0.0-0.04); IMM GRAN% 0.3 % (0.0-0.5); LYMPH# 1.67 X1000 (1.2-3.4); LYMPH% 28.2 % (20.5-51.1); MCH 23.1 PG (27-31); MCHC 29.7 g/dL (33-37); MCV 77.9 FL (81-99); MONO# 0.66 X1000 (0.11-0.59); MONO% 11.1 % (1.7-9.3); MPV 8.8 FL (7.4-10.4); NEUT# 3.25 X1000 (1.4-6.5); PLT 270 X1000 (130-400); RBC 4.02 XMIL (4.2-5.4); RDW 23.6 % (11.5-14.5); WBC 5.92 X1000 (4.8-10.8)
[2018-07-19 08:26] LABS: AGAP 10; BUN 12 mg/dL (8-22); CALCIUM 8.8 mg/dL (8.8-10.2); CHLORIDE 107 mmol/L (98-107); COSMO 290; CREATININE 0.7 mg/dL (0.5-0.9); ESTIMATED GFR > 60; GLUCOSE 124 mg/dL (70-104); POTASSIUM 3.7 mmol/L (3.5-5.1); SODIUM 145 mmol/L (136-145); TCO2 28 mmol/L (25-35)
[2018-07-19] MEDS: CARDIZEM CD PO SCH (08:29)
[2018-07-19] MEDS: NEURONTIN PO SCH ×4 (08:29→20:50)
[2018-07-19] MEDS: ELIQUIS PO SCH ×2 (08:50→20:50)
[2018-07-19] MEDS: MS CONTIN PO SCH ×2 (09:27→20:50)
--- NOTE | 2018-07-19 18:58 | GENERAL SURGERY PROGRESS NOTE ---
DATE: 07/19/2018 Intermittently has pain. No fevers, no tachycardia. Unna wraps in place, with improved edema. There is no cellulitis extending up or down. LABS: White count is normal at 5, creatinine 0.7. I reviewed her cultures. ASSESSMENT AND PLAN: A 58-year-old female status post cellulitis related to venous ulcer. We will continue her Unna wraps. I think the plan is to let her go home with oral antibiotics. Will continue twice weekly Unna wrap changes left lower extremity. She is to follow with me in a week at [facility]. I do think after her infection is cleared, she is worth investigating the possibility of May-Thurner syndrome based off her CT scan and her history. cc: Andreea Underwood MD
[2018-07-20] MEDS: KEFZOL 2 GM/D5W 2 GM/50 ML IVPB IV SCH ×2 (00:51→08:46)
[2018-07-20] MEDS: NORCO-10 PO PRN ×3 (01:13→13:28)
[2018-07-20] MEDS: TYLENOL PO PRN (06:41)
[2018-07-20] MEDS: PRILOSEC PO SCH (06:41)
[2018-07-20] MEDS: CARDIZEM CD PO SCH (08:46)
[2018-07-20] MEDS: NEURONTIN PO SCH ×2 (08:46→13:28)
[2018-07-20] MEDS: ELIQUIS PO SCH (08:46)
[2018-07-20] MEDS ORDERED: KEFLEX PO SCH (09:45)
[2018-07-20] MEDS: KEFLEX PO SCH ×3 (10:08→13:45)
--- NOTE | 2018-07-20 10:25 | DISCHARGE SUMMARY ---
ADMISSION DATE: 07/15/2018 DISCHARGE DATE: DISCHARGE DIAGNOSES: 1. Left ankle venous stasis ulcer with an MSSA cellulitis and a strep pyogenes cellulitis. 2. Chronic pain disorder. 3. History of deep venous thrombosis and pulmonary embolus with a chronic deep venous thrombosis in the left lower extremity with a very high suspicion for May Thurner syndrome. CONSULTATIONS: 1. Dr. Underwood General Surgery. 2. Dr. Zavala Infectious Disease. PROCEDURES: None. IMAGING: Extensive with venous ultrasound showing persistent DVT with maintenance of flow, nonocclusive. She had an MRI of the lower extremity on the that showed no osteo with the possibility of cellulitis. CT scan showed artery over vein and some adenopathy, but no jacky pelvic vein obstruction, although there was suspicion based on the anatomy that there was May Thurner syndrome involved. HISTORY: The patient presented a 58-year-old female with DVT and PE who has chronic venous stasis. She was placed on antibiotics. ID and Surgery was consulted. I want to say we initially put her on vancomycin and cefepime, and she was maintained. Culture was obtained, which showed a gram-positive cocci x2. One was Staph aureus which was oxacillin sensitive, and the other was a group A strep consistent with strep pyogenes. She clinically improved with antibiotics and defervesced. She had 100.2 temperature on admission. By the , it was better. White count was normal. Wound care was acceptable. Immunoglobulins were normal. She was felt stable for discharge on the . DISCHARGE MEDICATIONS: 1. Cardizem 24 120 daily. 2. Eliquis 5 b.i.d. 3. Gabapentin 300 q.6h. 4. MS Contin 60 b.i.d. 5. Bonham 10 q.6 hours p.r.n. pain. 6. Phenergan 25 b.i.d. 7. Protonix 40 b.i.d. 8. Requip 2 g b.i.d. 9. Zanaflex 4 q.8h. 10. Keflex [address] Zavala for 14 days. DISCHARGE CONDITION: Stable. FOLLOW-UP: She is to follow up with Dr. Underwood next week. Unna boots changed twice weekly with home health. Follow up with Dr. Zavala in 1 to 2 weeks. Please also refer to Dr. Johnny Plascencia. TIME SPENT: 32 minute discharge. cc: Lee Gonzalez MD [facility]
[2018-07-20] MEDS: MS CONTIN PO SCH (10:42)
[2018-07-20 11:59] VITALS: BP 135/78
--- NOTE | 2018-07-20 23:15 | DISCHARGE SUMMARY ---
ADMISSION DATE: 07/15/2018 DISCHARGE DATE: 07/20/2018 ADDENDUM Planned for discharge but I think she had no way of getting home, apparently. In any case, she was monitored and Unna boot was changed this morning. Vital signs are stable. I do not think we got any new labs. Her left lower extremity is wrapped in Unna boot. Plan is still the same. Discharge on Keflex for another [address] Zavala, and follow up with Dr. Underwood for continued wound care. TIME: Discharge 35 minutes. cc: Lee Gonzalez MD
== END 2018-07-20 15:37 | disposition home health service (06) | DRG 602 ==
LOC: ED 14:07 → 3N 19:44 → SUATTDRO 19:44
PROVIDERS: ATTEND Internal Medicine
CPT/HCPCS: 71020; 71046; 73590; 73723; 74178; 80048; 80053; 82306; 82784; 83605; 84443; 84484; 85025; 85610; 85651; 85730; 86140; 87040; 87070; 87077; 87186; 93005; 93971; 96365; 96375; 99285; A9270; A9579; J0690; J0692; J0696; J1170; J2270; J3370; J7030; J7040; J7050; Q9967